=== PATIENT | male | born 1965 | race Caucasian/White ===

== ENCOUNTER 2025-08-22 13:18 | Outpatient (OUT) | payer MEDICARE, OTHER, SELFPAY ==
--- OUTSIDE RECORDS SUMMARY | 2025-08-15 15:15 | XMS_ITS | Encounter Summary ---
Author Organization [facility] Address [address] [place] [address] Care Team Providers Care Furniture Manager Name Role Phone Flash Martin DO Primary Care Provider [phone] Flash Martin DO Unavailable [phone] Reason for Visit * Other Medical (Routine) - Closed Specialty Diagnoses / Procedures Referred By Kelsea nguyen Referred To Contact Neurology Diagnoses Arthritis, lumbar spine Lumbar radiculopathy Numbness and tingling Procedures EMG AND NERVE CONDUCTION STUDY Flash Martin, DO [address] [address] [place] [address] Phone: tel: fax: Vince Dawn MD [address] [place] [address] Phone: tel: fax: Referral ID Status Reason Start Date Expiration Date Visits Re quested Visits Authorized [id number] Closed 08/06/2025 02/02/2026 1 1 Encounter Details Date Type Department Care Team (Latest Contact Info) Description 08/15/2025 3:15 PM EDT [facility] [address] [place] [phone] Vince Dawn MD [address] [place] [address] [id number] Numbness (Primary Dx); Pain in both lower extremities; Weakness of both lower extremities Social History Tobacco Use Types Packs/Day Years Used Date Smoking Tobacco: Never Smokeless Tobacco: Never Alcohol Use Standard Drinks/Week Comments Yes 12 (1 standard drink = 0.6 oz pure alcohol) caffeine: 1-2 cups per day coffee 4 cups daily B1300 Health Literacy Answer Date Recor ded How often do you need to hav e someone help you when you read instructions, pamphlets, or other written material from your doctor or pharmacy? Patient declines to respond 07/24/2024 Social Connection and Isolation Panel [NHANES] A nswer Date Recorded In a typical week, how many times do you talk on the phone with family, friends, or neighbors? Patient declined 07/24/2024 How often do you get togethe r with friends or relatives? Patient declined 07/24/2024 How often do you attend shinto or baptist serv ices? Patient declined 07/24/2024 Do you belong to any clubs o r organizations such as shinto groups, unions, fraternal or athletic groups, or school groups? Patient declined 07/24/2024 How often do you attend meet ings of the clubs or organizations you belong to? Patient declined 07/24/2024 Are you , , di vorced, , never , or living with a partner? Patient declined 07/24/2024 AUDIT-C Answer Date Recorded Q1: How often do you have a drink containing alc ohol? Patient declined 07/24/2024 Q2: How many drinks containi ng alcohol do you have on a typical day when you are drinking? Patient declined 07/24/2024 Q3: How often do you have si x or more drinks on one occasion? Patient declined 07/24/2024 Overall Financial Resource Strain (CARDIA) Answe r Date Recorded How hard is it for you to pa y for the very basics like food, housing, medical care, and heating? Patient declined 07/24/2024 PHQ-2 Answer Date Recorded Patient Health Questionnaire-2 Score 0 08/06/2025 [facility] [place] [facility] Occupat ional Health - Occupational Stress Questionnaire Answer Date Recorded Do you feel stress - tense, restless, nervous, or anxious, or unable to sleep at night because your mind is troubled all the time - these days? Patient declined 07/24/2024 Exercise Vital Sign Answer Date Recorde d On average, how many days pe r week do you engage in moderate to strenuous exercise (like a brisk walk)? 0 days 07/24/2024 On average, how many minutes do you engage in exercise at this level? 0 min 07/24/2024 Hunger Vital Sign Answer Date Recorded Within the past 12 months, y ou worried that your food would run out before you got the money to buy more. Patient declined Within the past 12 months, t he food you bought just didn't last and you didn't have money to get more. Patient declined 12/2023 PRAPARE - Transportation Answer Date Re corded In the past 12 months, has l ack of transportation kept you from medical appointments or from getting medications? Patient declined 07/24/2024 In the past 12 months, has l ack of transportation kept you from meetings, work, or from getting things needed for daily living? Patient declined 07/24/2024 Housing Stability Vital Sign Answer Jeffry e Recorded In the last 12 months, was t here a time when you were not able to pay the mortgage or rent on time? Patient declined 07/24/20 24 Number of Times Moved in the Last Year Not on fi le 07/24/2024 At any time in the past 12 m [facility], were you homeless or living in a [place] facility (including now)? Patient declined 07/24/2024 Sex and Gender Information Value Date Recorded Sex Assigned at Male 12/08/2023 9:56 AM EST Legal Sex Male 6:36 PM EDT Gender Identity Male 12/08/2023 9:56 AM EST Sexual Orientation Not on file documented as of this encounter Progress Notes * Vince Dawn MD - 08/15/2025 3:15 PM EDT [facility] Patient: Eric Dodge [address], [address] , Sex: 1965, Male [place], [place] [address] Height: 180 cm Ref Phys: [email or web address] fax Electroneuromyogram (ENMG) Test Date: 2025-08-15 Patient Complaints: Low back pain, groin, buttocks, Numbness RL I. Fusion 2019, revision 2020. Nerve Conduction Studies Anti Sensory Summary Table Site NR Peak (ms) Norm Peak (ms) P-T* Amp (??V) Norm P-T Amp Site1 Site2 Delta-0 (ms) Dist (cm) Hussain(m/s) Norm Hussain (m/s) Left Saphenous (Wainapel's) Anti Sensory (med mall) med leg NR <4.41 >5.0 med leg med mall 14.0 >38.2 Right Saphenous ([place]ainapel's) Anti Sensory (med mall) med leg NR <4.41 >5.0 med leg med mall 14.0 >38.2 Left Superf Peron (Mary's) Anti Sensory (Ant Lat Mall) Calf NR <4.61 >3.99 Calf Ant Lat Mall 14.0 >40.49 Right Superf Peron (Mary's) Anti Sensory (Ant Lat Mall) Calf NR <4.61 >3.99 Calf Ant Lat Mall 14.0 >40.49 Left Sural Anti Sensory (Lat Mall) Calf NR <3.91 >5.99 Calf Lat Mall 14.0 >36.9 Right Sural Anti Sensory (Lat Mall) Calf 4.0 <3.91 6.6 >5.99 Calf Lat Mall 3.1 14.0 45 >36.9 Motor Summary Table Site NR Onset (ms) Norm Onset (ms) O-P* Amp (mV) Norm O-P Amp Neg Dur (ms) Site1 Site2 Delta-0 (ms)Dist (cm) Hussain (m/s) Norm Hussain (m/s) Left Peroneal Motor (Ext Dig Brev) max stim Ankle 1.6 <6.31 3.8 >1.99 7.03 Ankle Ext Dig Brev 1.6 10.0 63 B Fib 1.3 6.3 >1.99 17.03 B Fib Ankle 0.3 27.0 900 >38.9 Right Peroneal Motor (Ext Dig Brev) max stim Ankle 6.3 <6.31 0.4 >1.99 9.38 Ankle Ext Dig Brev 6.3 10.0 16 B Fib 11.6 5.6 >1.99 5.47 B Fib Ankle 5.3 26.0 49 >38.9 Left Peroneal TA Motor (Tib Ant) Fib Head 3.9 2.4 6.72 Left Tibial/Medial Plantar Motor (Abd Moore Brev) max stim Ankle 6.6 <7.51 2.6 >3.99 3.75 Ankle Abd Moore Brev 6.6 10.0 15 Knee 15.8 2.4 >3.99 4.38 Knee Ankle 9.2 36.0 39 >37.9 Right Tibial/Medial Plantar Motor (Abd Moore Brev) max stim, dispsersed, multilobar Ankle 5.5 <7.51 2.0 >3.99 6.09 Ankle Abd Moore Brev 5.5 10.0 18 Knee 13.8 2.4 >3.99 6.25 Knee Ankle 8.3 37.0 45 >37.9 H Reflex Studies NR H-Lat (ms) Lat Norm (ms) L-R H-Lat (ms) Left Tibial H-Reflex (Gastroc) 33.32 31.91 EMG Side Muscle Nerve Root Ins Act Fib/ Pos Fasc Other Atrophy Amp Dur Poly Recr Pat Int Pat Comment Right Ext Dig Brev Dp Br Peron L5, S1 0 0 0 0 0 2- 2+ 0 N 1- Right Tibialis Ant Dp Br Peron L4-5 0 0 0 0 0 N 1+ 0 N 1- Right Peroneus Long Sup Br Peron L5-S1 0 0 0 0 0 N 1+ 0 N N Right Abd Hallucis MedPlantar S1-2 0 1+ 0 0 0 3- 2+ 0 2- 2- Right Gastroc Med Tibial S1-2 0 0 0 0 0 N N 0 N FFE Right Vastus Lat Femoral L2-4 0 0 0 0 0 N N 0 N N Right L5-S1 Parasp L5-S1 0 2.5+ 0 0 0 Right L3-L4 Parasp L3-L4 0 2.5+ 0 0 0 Right L1-L2 Parasp L1-L2 0 1+ 0 0 0 Left Ext Dig Brev Dp Br Peron L5, S1 0 0 0 0 0 N 1+ 0 W&W N Left Tibialis Ant Dp Br Peron L4-5 0 0 0 0 0 N 1+ 0 1- N Left Peroneus Long Sup Br Peron L5-S1 0 0 0 0 0 N N 0 N N Left Abd Hallucis MedPlantar S1-2 0 0 0 0 0 N 3+ 0 2- N Left Gastroc Med Tibial S1-2 0 0 0 0 0 N N 0 N N Left Vastus Lat Femoral L2-4 0 0 0 0 0 N N 0 N N Left L5-S1 Parasp L5-S1 0 0 0 0 0 Left L3-L4 Parasp L3-L4 0 2.5+ 0 0 0 Left L1-L2 Parasp L1-L2 0 1+ 0 0 0 Abbreviations: Atrop=atrophy; CRD=complex repetitive discharge; Discr=discrete; Doub=doublet; Fasc=fasciculation; FFE=full for effort; Fib=fibrillation; Myokym=myokymia; [place]=myotonic potential; N,0=normal; NR=no response; Polyph=polyphasia; Pos=positive [sharp] wave; RFU=rapidly firing units; Ser r=serrated potential (2<phases<5); W&W=waxing and waning pattern INTERPRETATION: This study reveals ENMG evidence of an drxzf-fs-iyutnbf, \axonal process affecting multiple lumbar nerve roots, worst at the R L3-S1 levels (moderate to severe), followed by L L3-4, and mildly at L1-L2 bilaterally. Given the overlap of radicular territories in the paraspinal musclature; the actual nerve roots involved may be one level higher or lower than suggested here. There is a separate, chronic, axonal, sensory > motor process affecting all lower extremity nerves tested. Needle examination demonstrates a osqsxa-bd-drmhvgjm gradient that is most suggestive of peripheral neuropathy. This is of moderate degree by electrical criteria. Potential aetiologies include diabetes mellitus, hypothyroidism, deficiencies of B12, B6, or folate, B6 excess, the collagen-vascular diseases, dysglobulinaemias, medications (including chemotherapeutics, diuretics, and others), as a paraneoplastic syndrome, and a considerable number of rarer conditions. There is no suggestion by this study of myopathy, mononeuropathy, nor of more proximal processes e.g. plexopathy or radiculopathy. The study was limited by body habitus and to some degree by the patient's pain level, especially due to muscle spasms. Vince Dawn M.D. Diplomate, [place] [employer]iat[employer] and Neurology (neurology, epilepsy, sleep medicine) Diplomate, [place] Board of Clinical Neurophysiology Diplomate, [place] Board of Preventive Medicine (clinical informatics) . documented in this encounter Plan of Treatment Upcoming Encounters Date Type Department Care Team (Late st Contact Info) Description 12/11/2025 3:30 PM EST Office Visit [facility] [place] [facility] [address] [place] [address] Justine Giraldo DO [address] [place] [address] documented as of this encounter Visit Diagnoses Diagnosis Numbness- Primary Disturbance of skin sensation Pain in both lower extremities Weakness of both lower extremities documented in this encounter Care Teams Furniture Manager Relationship Specialty Start Date End Date Flash Martin DO [address] [place] [address] PCP - General Family Medicine 11/30/23 Flash Martin DO [address] [place] [address] PCP - [facility] [place] 12/23/24 documented as of this encounter
--- OUTSIDE RECORDS SUMMARY | 2025-08-21 15:00 | XMS_ITS | Encounter Summary ---
Author Organization [facility] Address [address] [place] [address] Care Team Providers Care Vehicle Trimmer Name Role Phone Flash Martin DO Primary Care Provider [phone] Flash Martin DO Unavailable [phone] Reason for Visit * Reason Comments COPD 4 month follow up Sleep Apnea 4 month follow up Encounter Details Date Type Department Care Team (Late st Contact Info) Description 08/21/2025 3:00 PM EDT Office Visit [facility] [address] [place] [address] Justine Giraldo DO [address] [place] [address] Mild chronic obstructive pulmonary disease (HCC) (Primary Dx); Obstructive sleep apnea syndrome Social History Tobacco Use Types Packs/Day Years [...] declined 07/24/2024 How often do you attend sabianism or muslim serv ices? Patient declined 07/24/2024 Do you belong to any clubs o r organizations such as sabianism groups, unions, fraternal or athletic groups, or [...] Recorded Patient Health Questionnaire-2 Score 0 08/06/2025 [facility] - Occupational Stress Questionnaire Answer Date Recorded [...] any time in the past 12 m [facility], were you homeless or living in a long term (including now)? Patient declined 07/24/2024 Sex and Gender Information Value Date Recorded Sex Assigned at Male 12/08/2023 9:56 AM EST Legal Sex Male 6:36 PM EDT Gender Identity Male 12/08/2023 9:56 AM EST Sexual Orientation Not on file documented as of this encounter Last Filed Vital Signs Vital Sign Reading Time Taken Comments Blood Pressure 131/76 08/21/2025 3:14 PM EDT Pulse 84 08/21/2025 3:14 PM EDT Temperature - - Respiratory Rate - - Oxygen Saturation 97% 08/21/2025 3:14 PM EDT Inhaled Oxygen Concentration - - Weight 150 kg (330 lb) 08/21/2025 3:14 PM EDT Height 180.3 cm (5' 11 ) 08/21/2025 3:14 PM EDT Body Mass Index 46.03 08/21/2025 3:14 PM EDT documented in this encounter Progress Notes * Justine Giraldo, DO - 08/21/2025 3:00 PM EDT Images from the original note were not included. Eric Dodge Sr presents today for follow up on COPD and sleep apnea. He was last seen several months ago. He is accompanied by his at today's office visit. Since his last office visit he did hurt his back. He has been following with Neurology as well as his primary care physician in regardsto this. He is scheduled to have an MRI performed soon. His breathing he states has been fairly stable. He has noticed in the past that this time a year has been worse for him given the allergies. Hedoes feel that this year has been better so far. He denies any current complaints of increasing shortness of breath at rest or with exertion. He denies any chest pain, palpitations, fevers, chills, sweats, or recent unintentional weight changes. He has yet to receive his Dupixent. However upon further discussion it does sound as if he needs to call to set up delivery. They had talked to his in the past but need to speak with him. He denies any other complaints. Allergies: Allergies Allergen Reactions Amlodipine Swelling LE swelling Bee Venom Anaphylaxis and Swelling Penicillin G Anaphylaxis Penicillins Shortness of breath and Swelling Wasp Venom Anaphylaxis Chlorhexidine Rash Lisinopril GI intolerance Stomach cramp Penicillin G Sodium Hives Statins GI intolerance Other Reaction(s): abdominal cramping Medications: Current Outpatient Medications: carvedilol (Coreg) 12.5 MG tablet, Take 1 tablet (12.5 mg) by mouth in the morning and 1 tablet (12.5 mg) in the evening. Take with meals., Disp: 180 tablet, Rfl: 3 Cetirizine HCl (ZYRTEC PO), Take by mouth, Disp: , Rfl: colchicine 0.6 MG tablet, Take 1 tablet (0.6 mg) by mouth Daily, Disp: 30 tablet, Rfl: 2 Dupilumab (Dupixent) 100 MG/0.67ML solution prefilled syringe, Inject under the skin, Disp: , Rfl: febuxostat (Uloric) 80 MG tablet, , Disp: , Rfl: gabapentin (Neurontin) 300 MG capsule, Take 1 capsule (300 mg) by mouth in the morning and 1 capsule (300 mg) in the evening and 1 capsule (300 mg) before bedtime., Disp: 90 capsule, Rfl: 1 naproxen (Naprosyn) 500 MG tablet, , Disp: , Rfl: tadalafil (Cialis) 20 MG tablet, Take 1 tablet (20 mg) by mouth Daily as needed for erectile dysfunction, Disp: 10 tablet, Rfl: 2 tiZANidine (Zanaflex) 2 MG tablet, Take 1-2 tablets (2-4 mg) by mouth at bedtime, Disp: 60 tablet, Rfl: 1 albuterol HFA 90 mcg/act inhaler, Inhale 2 puffs every 4 (four) hours if needed for wheezing, Disp:18 g, Rfl: 11 Sujoswn-Txheucyzyef-Wwfytolheu (Breztri Aerosphere) 160-9-4.8 MCG/ACT aerosol, Inhale 2 puffs in the morning and 2 puffs before bedtime., Disp: 10.7 g, Rfl: 5 montelukast (Singulair) 10 MG tablet, Take 1 tablet (10 mg) by mouth at bedtime, Disp: 30 tablet, Rfl: 5 omeprazole (PriLOSEC) [address] capsule, Take 1 capsule (40 mg) by mouth in the morning. Take beforemeals. Do not crush or chew.., Disp: 30 capsule, Rfl: 5 Past Medical History: Past Medical History: Diagnosis Date Abdominal wall pain 12/12/2013 Allergic Arthritis Boxers fracture Broken foot right Carpal tunnel syndrome Cervical disc disorder 09/17/2015 Colon polyps Constipation 06/15/2024 COPD (chronic obstructive pulmonary disease) ([facility]) CTS (carpal tunnel syndrome) 11/09/2014 Cubital tunnel syndrome 06/15/2024 Emphysema of lung ([facility]) 2019 Encounter for colonoscopy due to history of adenomatous colonic polyps 06/15/2024 Hyperlipidemia Hypertension Hyperuricemia 09/18/2024 Lesion of ulnar nerve 05/18/2023 Lesion of ulnar nerve, right upper limb 05/18/2023 Lumbar foraminal stenosis 06/15/2024 Lumbosacral plexus lesion 11/22/2022 Mixed hyperlipidemia 05/18/2023 Pneumonia Primary osteoarthritis of right ankle 05/18/2023 Shingles Sleep apnea Spinal stenosis Social History: Social History Tobacco Use Smoking status: Never Smokeless tobacco: Never Substance Use Topics Alcohol use: Yes Alcohol/week: 12.0 standard drinks of alcohol Types: 12 Standard drinks or equivalent per week Comment: caffeine: 1-2 cups per day coffee 4 cups daily Vitals: BP 131/76 (BP Location: Left arm, Patient Position: Sitting) Pulse 84 Ht 5' 11 Wt 330 lb SpO2 97% BMI 46.03 kg/m?? Exam: Heart: regular rate Lungs: clear to auscultation bilaterally, no wheezes/rales/rhonchi, no resp distress Extremities: no edema noted, no visible rashes Neuro: alert, oriented x3 Imaging Reviewed: None Assessment/Plan: Diagnoses and all orders for this visit: Mild chronic obstructive pulmonary disease (HCC) - Uszdnmb-Ibtzppqqctc-Mwxibudbol (Breztri Aerosphere) 160-9-4.8 MCG/ACT aerosol; Inhale 2 puffs in the morning and 2 puffs before bedtime. - montelukast (Singulair) 10 MG tablet; Take 1 tablet (10 mg) by mouth at bedtime - albuterol HFA 90 mcg/act inhaler; Inhale 2 puffs every 4 (four) hours if needed for wheezing Obstructive sleep apnea syndrome COPD -- he did request refills on his Breztri, Singulair, and albuterol. These were sent to the pharmacy for him at today's office visit. We discussed starting the Dupixent. He was again given samples at today's office visit. He will in the meantime call the company to ensure that this gets delivered so that he can begin getting this at home. He will follow here in 4 months time unless needed before then. JAN -- he remains noncompliant with use of his CPAP machine. We discussed the importance using his CPAP. Follow up in about 4 months (around 12/21/2025) for COPD. Justine Giraldo DO documented in this encounter Plan of Treatment Upcoming Encounters Date Type Department Care Team (Late st Contact Info) Description 12/11/2025 3:30 PM EST Office Visit [facility] [place] [facility] [address] [place] [address] Justine Giraldo DO [address] [place] [address] documented as of this encounter Visit Diagnoses Diagnosis Mild chronic obstructive pulmonary disease (HCC)- Primary Chronic airway obstruction, not elsewhere classified Obstructive sleep apnea syndrome Obstructive sleep apnea (adult) (pediatric) documented in this encounter Care Teams Vehicle Trimmer Relationship Specialty Start Date End Date Flash Martin DO [address] [place] [address] PCP - General Family Medicine 11/30/23 Flash Martin DO [address] [place] [address] [facility] 12/23/24 documented as of this encounter
--- OUTSIDE RECORDS SUMMARY | 2025-08-22 13:24 | XMS_ITS | Encounter Summary ---
Author Organization [facility] Address [address] [address] Care Team Providers Care Hydraulic Barker Operator Name Role Phone Flash Martin DO Primary Care Provider [phone] Flash Martin DO Unavailable [phone] Flash Martin DO Unavailable [phone] Encounter Details Date Type Department Care Team (Late Contact Info) Description 07/06/2024 [facility] [address] [facility] [address] [place] [id number] Flash Martin, DO [address] [facility] [address] [place] [address] Social History Tobacco Use Types Packs/Day Years Used Date Smoking Tobacco: Never Smokeless Tobacco: Never Alcohol Use Standard Drinks/Week Comments Yes 12 (1 standard drink = 0.6 oz pure alcohol) caffeine: 1-2 cups per day coffee 4 cups daily PHQ-2 Answer Date Recorded Patient Health Questionnaire-2 Score 0 12/15/2023 Sex and Gender Information Value Date Recorded Sex Assigned at Male 12/08/2023 9:56 AM EST Legal Sex Male 6:36 PM EDT Gender Identity Male 12/08/2023 9:56 AM EST Sexual Orientation Not on file documented as of this encounter Plan of Treatment Upcoming Encounters Date Type Department Care Team (Late st Contact Info) Description 12/11/2025 3:30 PM EST Office [facility] [address] [place] [address] Justine Giraldo, DO [address] [place] [address] documented as of this encounter Visit Diagnoses Not on filedocumented in this encounter Care Teams Hydraulic Barker Operator Relationship Specialty Start Date End Date Flash Martin, DO [address] [place] [address] PCP - General Family Medicine 11/30/23 Flash Martin DO [address] [place] [address] PCP - [facility] 12/29/24 02/22/25 Flash Martin DO [address] [place] [address] PCP - [facility] 12/23/24 documented as of this encounter
--- OUTSIDE RECORDS SUMMARY | 2025-08-22 13:24 | XMS_ITS | Encounter Summary ---
Author Organization [facility] Address [address] [facility] [place] [address] Care Team Providers Care Receivable Manager Name Role Phone Flash Martin DO Primary Care Provider [phone] Flash Martin DO Unavailable [phone] Flash Martin DO Unavailable [phone] Encounter Details Date Type Department Care Team (Late st Contact Info) Description 05/18/2024 Abstract [facility] [address] [place] [address] Justine Giraldo DO [address] [place] [place] [address] Social History Tobacco Use Types Packs/Day Years [...] Description 12/11/2025 3:30 PM EST Office Visit [facility] [address] [place] [address] Justine Giraldo, DO [address] [place] [address] documented as of this encounter Visit Diagnoses Not on filedocumented in this encounter Care Teams Receivable Manager Relationship Specialty Start Date End Date Flash Martin DO [address] [place] [address] PCP - General Family Medicine 11/30/23 Flash Martin DO [address] [place] [address] PCP - [facility] 12/29/24 02/22/25 Flash Martin DO [address] [place] [address] [address] - [facility] 12/23/24 documented as of this encounter
--- OUTSIDE RECORDS SUMMARY | 2025-08-22 13:24 | XMS_ITS | Encounter Summary ---
Author Organization [facility] Address [address] [facility] [place] [address] Care Team Providers Care Middle School Tutor Name Role Phone Flash Martin DO Primary Care Provider + [phone] Flash Martin DO Unavailable [phone] Flash Martin DO Unavailable [phone] Encounter Details Date Type Department Care Team (Late st Contact Info) Description 02/19/[address] [facility] [address] [place] [address] Yee Lundberg MA Gout, unspecified cause, unspecified chronicity, unspecified site Social History Tobacco Use Types Packs/Day Years [...] declined 07/24/2024 How often do you attend scientologist or islam serv ices? Patient declined 07/24/2024 Do you belong to any clubs o r organizations such as scientologist groups, unions, fraternal or athletic groups, or [...] Answer Date Recorded Patient Health Questionnaire-2 Score 1 01/11/2025 [facility] - Occupational Stress Questionnaire Answer Date Recorded [...] any time in the past 12 m [facility], were you homeless or living in a group home (including now)? Patient declined 07/24/2024 Sex and [...] [facility] [address] [place] [address] Justine Giraldo DO [address] [place] [address] documented as of this encounter Procedures Procedure Name Priority Date/Time Associated Diagnosis Comments AMB REFERRAL TO RHEUMATOLOGY Routine 02/19/2025 3:33 PM EDT Gout, unspecified cause, unspecified chronicity, unspecified site documented in this encounter Results * Ambulatory referral to Rheumatology (02/19/2025 3:33 PM EDT) Flash Martin DO OUTPATIENT REFERRAL ORDERA BLES Final Result documented in this encounter Visit Diagnoses Diagnosis Gout, unspecified cause, unspecified chronicity, unspecified site documented in this encounter Care Teams Middle School Tutor Relationship Specialty Start Date End Date Flash Martin DO [address] [place] [address] PCP - General Family Medicine 11/30/23 Flash Martin DO [address] [place] [address] PCP - O Reach 12/29/24 02/22/25 Flash Martin DO [address] [place] [id number] [facility] 12/23/24 documented as of this encounter
--- OUTSIDE RECORDS SUMMARY | 2025-08-22 13:24 | XMS_ITS | Clinical Summary ---
Author Organization [facility] Address [address] [place] [address] Phone Care Team Providers Care Evp And Chief Operating Officer Name Role Phone Unavailable Primary Care Provider Unavailabl e Social History Tobacco Use Types Packs/Day Years Used Date Smoking Tobacco: Never Assessed Sex and Gender Information Value Date Recorded Sex Assigned at Not on file Legal Sex Male 12:00 PM EST Gender Identity Not on file Sexual Orientation Not on file Plan of Treatment Not on file
--- OUTSIDE RECORDS SUMMARY | 2025-08-22 13:25 | XMS_ITS | Clinical Summary ---
Author Organization [facility] Address [address] [place] [address] Care Team Providers Care Last Cleaner Name Role Phone Flash Martin DO Primary Care Provider [phone] Flash Martin DO Unavailable [phone] Allergies Active Allergy Reactions Criticality Noted Date Comments Amlodipine Swelling High 02/15/2015 LE swelling Bee Venom Anaphylaxis,Swelling High 03/29/2021 Chlorhexidine Rash Low 06/15/2024 Lisinopril GI intolerance Low 02/15/2015 Stomach cramp Penicillin G Anaphylaxis High 05/18/2023 Penicillin G Sodium Hives Low 10/07/2023 Penicillins Shortness of breath,Swelling High 12/12/2013 Statins GI intolerance Low 05/18/2023 Other Reaction(s): abdominal cramping Wasp Venom Anaphylaxis High 05/18/2023 Medications omeprazole (PriLOSEC) [address] capsuleIndication s:Gastroesophagea l reflux disease, unspecified whether esophagitis present Take 1 capsule (40 mg) by mouth in the morning. Take before meals. Do not crush or chew.. 30 capsule 5 06/03/20 23 Active colchicine 0.6 MG tabletIndications :Gout, unspecified cause, unspecified chronicity, unspecified site Take 1 tablet (0.6 mg) by mouth Daily 30 tablet 2 07/05/20 24 Active tadalafil (Cialis) 20 MG tabletIndications :Erectile dysfunction, unspecified erectile dysfunction type Take 1 tablet (20 mg) by mouth Daily as needed for erectile dysfunction 10 tablet 2 12/07/19 25 Active febuxostat (Uloric) 80 MG tablet 12/04/19 25 Active naproxen (Naprosyn) 500 MG tablet 12/04/19 25 Active Dupilumab (Dupixent) 100 MG/0.67ML solution prefilled syringe Inject under the skin Active carvedilol (Coreg) 12.5 MG tabletIndications :Primary hypertension Take 1 tablet (12.5 mg) by mouth in the morning and 1 tablet (12.5 mg) in the evening. Take with meals. 180 tablet 3 01/11/20 25 026 Active Cetirizine HCl (ZYRTEC PO) Take by mouth Acti ve gabapentin (Neurontin) 300 MG capsuleIndication s:Arthritis, lumbar spine,Lumbar radiculopathy Take 1 capsule (300 mg) by mouth in the morning and 1 capsule (300 mg) in the evening and 1 capsule (300 mg) before bedtime. 90 capsule 1 08/06/20 25 025 Active tiZANidine (Zanaflex) 2 MG tabletIndications :Arthritis, lumbar spine,Lumbar radiculopathy Take 1-2 tablets (2-4 mg) by mouth at bedtime 60 tablet 1 08/06/20 25 025 Active Budeson-Glycopyrr ol-Formoterol (Breztri Aerosphere) 160-9-4.8 MCG/ACT aerosolIndication s:Mild chronic obstructive pulmonary disease (HCC) Inhale 2 puffs in the morning and 2 puffs before bedtime. 10.7 g 5 08/21/20 25 Active montelukast (Singulair) 10 MG tabletIndications :Mild chronic obstructive pulmonary disease (HCC) Take 1 tablet (10 mg) by mouth at bedtime 30 tablet 5 08/21/20 25 Active albuterol HFA 90 mcg/act inhalerIndication s:Mild chronic obstructive pulmonary disease (HCC) Inhale 2 puffs every 4 (four) hours if needed for wheezing 18 g 11 08/21/20 25 Active ALPRAZolam (Xanax) 1 MG tabletIndications :Claustrophobia 1 pill 1 hr prior to mri and may repeat at time of mri 2 tablet 08/22/20 25 Active Budeson-Glycopyrr ol-Formoterol (Breztri Aerosphere) 160-9-4.8 MCG/ACT aerosolIndication s:Mild chronic obstructive pulmonary disease (HCC) INHALE 2 PUFFS BY MOUTH EVERY 12 HOURS 10.7 g 5 08/10/20 24 025 Discontinu ed(Reorder ) montelukast (Singulair) 10 MG tabletIndications :Mild chronic obstructive pulmonary disease (HCC) TAKE 1 TABLET BY MOUTH AT BEDTIME 30 tablet 5 01/19/20 25 025 Discontinu ed(Reorder ) albuterol HFA 90 mcg/act inhalerIndication s:Mild chronic obstructive pulmonary disease (HCC) Inhale 2 puffs every 4 (four) hours if needed for wheezing 18 g 11 04/06/20 25 025 Discontinu ed(Reorder ) predniSONE (Deltasone) 20 MG tabletIndications :Arthritis, lumbar spine,Lumbar radiculopathy Take 2 tablets (40 mg) by mouth Daily for 3 days, THEN 1 tablet (20 mg) Daily for 3 days, THEN 0.5 tablets (10 mg) Daily for 4 days. 11 tablet 08/06/20 25 025 Active Problems Problem Noted Date Diagnosed Date Impaired fasting glucose 09/02/2023 Arthritis, lumbar spine 05/18/2023 Benign prostatic hyperplasia with lower urinary tract symptoms 05/18/2023 Erectile dysfunction 05/18/2023 Gastroesophageal reflux disease 05/18/2023 Gout 05/18/2023 Mild chronic obstructive pulmonary disease 05/18 Obesity, Class III, BMI 40-49.9 (morbid obesity) 05/18/2023 Obstructive sleep apnea syndrome 05/18/2023 Hypertension 02/15/2015 Hyperlipidemia 02/15/2015 Resolved Problems Problem Noted Date Diagnosed Date Resolved Date Hyperuricemia 09/18/2024 09/18/2024 Constipation 06/15/2024 06/15/2024 Cubital tunnel syndrome 06/15/202405/23 Encounter for colonoscopy du e to history of adenomatous colonic polyps 06/15/2024 06/15/2024 Lumbar foraminal stenosis 06/15/2024 Arthritis 05/18/2023 05/18/2023 Dyspnea 05/18/2023 05/18/2023 Lesion of ulnar nerve, right upper limb 05/18/2023 05/18/2023 Lesion of ulnar nerve 05/18/20232022 Loose body in joint 05/18/2023 05/18/20 23 Mixed hyperlipidemia 05/18/2023 023 Neurogenic claudication 05/18/202304/23 Obesity 05/18/2023 05/18/2023 Poor balance 05/18/2023 05/18/2023 Primary osteoarthritis of right ankle 05/18/2023 05/18/2023 Right foot pain 05/18/2023 05/18/2023 Shingles 05/18/2023 05/18/2023 Lumbosacral plexus lesion 11/22/2022 Lymphadenopathy 09/26/2015 05/18/2023 Cervical disc disorder 09/17/201505/18 Midline low back pain with r ight-sided sciatica 09/17/2015 05/18/2023 Sleep apnea 02/15/2015 05/18/2023 CTS (carpal tunnel syndrome) 11/09/2014 05/18/2023 Abdominal wall pain 12/12/2013 05/18/20 23 Encounters Date Type Department Care Team Description 08/21/2025 3:00 PM EDT Office Visit [facility] [address] [place] [address] Justine Giraldo DO Mild chronic obstructive pulmonary disease (HCC) (Primary Dx); Obstructive sleep apnea syndrome 08/21/2025 Bamboo flowsheet [facility] [place] [facility] [address] [place] [address] Justine Giraldo DO 08/21/2025 Travel 08/20/2025 Telephone [facility] [address] [place] [address] [place] [phone] Flash Martin, 08/15/2025 3:15 PM EDT Procedure Visit [facility] [address] [place] [phone] Vince Dawn MD Numbness (Primary Dx); Pain in both lower extremities; Weakness of both lower extremities 08/15/2025 Telephone [facility] [address] [place] [phone] Flash Martin, 08/15/2025 Travel 08/08/2025 Telephone [facility] [address] [place] [address] Venita Dawn 08/07/2025 Results Follow-Up [facility] [address] [place] [place] [phone] Flash Martin, XR lumbar spine complete 4+ views, XR hips bilateral 3 or 4 views 08/06/2025 3:30 PM EDT Ancillary Procedure [facility] [address] [place] [address] 08/06/2025 2:30 PM EDT Office Visit [facility] [address] [place] [phone] Flash Martin DO Arthritis, lumbar spine (Primary Dx); Lumbar radiculopathy; Pain of right hip; Lumbar pain; Left hip pain; Right hip pain; Numbness and tingling 08/06/2025 Bamboo flowsheet [facility] [address] [place] [phone] Flash Martin, 08/06/2025 Travel 07/25/20[facility] [address] [place] [address] [place] [address] Luciana Eugene MA 06/26/2025 Abstract [facility] [address] [place] [address] [place] [address] Flash Martin DO from Last 3 Months Immunizations Immunization Administration Dates Next Due Tetanus toxoid, adsorbed 09/02/2005 Family History Medical History Relation Name Comments Emphysema Mother Kadi Cazares Heart disease Mother Kadi Cazares Hyperlipidemia Mother Kadi Cazares Hypertension Mother Kadi Cazares Hypotension Mother Kadi Cazares Relation Name Status Comments Daughter Alive Father Alive Mother Kadi Cazares Alive Sister Alive Son Alive Social History Tobacco Use Types Packs/Day Years Used Date Smoking Tobacco: Never Smokeless Tobacco: Never Tobacco Cessation:Counseling Given: Not Answered Alcohol Use Standard Drinks/Week Comments Yes 12 [...] declined 07/24/2024 How often do you attend buddhist or yazdanism serv ices? Patient declined 07/24/2024 Do you belong to any clubs o r organizations such as buddhist groups, unions, fraternal or athletic groups, or [...] Recorded Patient Health Questionnaire-2 Score 0 08/06/2025 [facility] Occupat ional Health - Occupational Stress [...] any time in the past 12 m [facility], were you homeless or living in a fci (including now)? Patient declined 07/24/2024 Sex and Gender Information Value Date Recorded Sex Assigned at Male 12/08/2023 9:56 AM EST Legal Sex Male 6:36 PM EDT Gender Identity Male 12/08/2023 9:56 AM EST Sexual Orientation Not on file Last Filed Vital Signs Vital Sign Reading Time Taken Comments Blood Pressure 131/76 08/21/2025 3:14 PM EDT Pulse 84 08/21/2025 3:14 PM EDT Temperature 36.6 C (97.8 F) 08/06/2025 2:30 PM EDT Respiratory Rate - - Oxygen Saturation 97% 08/21/2025 3:14 PM EDT Inhaled Oxygen Concentration - - Weight 150 kg (330 lb) 08/21/2025 3:14 PM EDT Height 180.3 cm (5' 11 ) 08/21/2025 3:14 PM EDT Body Mass Index 46.03 08/21/2025 3:14 PM EDT Plan of Treatment Upcoming Encounters Date Type Department Care Team (Late st Contact Info) Description 12/11/2025 3:30 PM EST Office Visit [facility] [address] [place] [address] Justine Giraldo, DO [address] [place] [address] Health Maintenance Due Date Last Done Comments CT Colonography 1966 FIT-DNA 1966 FIT 1966 FOBT 1966 Sigmoidoscopy 1966 Influenza Vaccine (#1) 2025 Medicare Annual Wellness (AWV) 01/11/2026 01/11/2025 , 09/02/2023, 06/08/2022 Colonoscopy 03/14/2029 03/14/2019, 04/22/2013 Colorectal Cancer Screening 03/14/2029 Procedures Procedure Name Priority Date/Time Associated Diagnosis Comments XR HIPS BILATERAL 3 OR 4 VW WITH OR WITHOUT PELVIS Routine 08/06/2025 3:41 PM EDT Right hip pain XR LUMBAR SPINE COMPLETE 4+ VIEWS Routine 08/06/2025 3:41 PM EDT Lumbar pain LIPID PANEL Routine 08/02/2025 12:59 PM EDT Primary hypertension Mixed hyperlipidemia Routine general medical examination at a health care facility COMPREHENSIVE METABOLIC PANEL Routine 08/02/2025 12:59 PM EDT Primary hypertension Mixed hyperlipidemia Routine general medical examination at a health care facility CBC (INCLUDES DIFF/PLT) Routine 08/02/2025 12:59 PM EDT Primary hypertension Mixed hyperlipidemia Routine general medical examination at a health care facility PSA, TOTAL Routine 08/02/2025 12:59 PM EDT Primary hypertension Mixed hyperlipidemia Routine general medical examination at a [facility] facility Screening for prostate cancer COLONOSCOPY Routine 03/14/2019 12:00 PM EDT from Last 3 Months or Most Recently Relevant to Health Maintenance Results * XR hips bilateral 3 or 4 views (08/06/2025 3:41 PM EDT) Anatomical Region Laterality Modality Lower Extremities, Hip Bilateral Radiograp hic Imaging 08/07/2025 2:29 PM EDT Impressions 08/07/2025 2:29 PM EDT No acute osseous findings. Degenerative changes. ELECTRONICALLY SIGNED BY: Giovanni Gerber MD Narrative 08/07/2025 2:29 PM EDT EXAMINATION/TECHNIQUE: XR HIPS BILATERAL 3 OR 4 VW WITH OR WITHOUT PELVIS HISTORY: Right hip pain. COMPARISON: None RESULT: No acute fracture involving the bony pelvis. No acute hip fracture or dislocation. Postsurgical degenerative changes of the partially imaged lumbar spine. SI joints and pubic symphysis intact. Mild to moderate degenerative changes both hips with CAM morphology of the femoral heads. Soft tissues unremarkable. Procedure Note Giovanni Gerber MD - 08/07/2025 EXAMINATION/TECHNIQUE: XR HIPS BILATERAL 3 OR 4 VW WITH OR WITHOUTPELVIS HISTORY: Right hip pain. COMPARISON: None RESULT: No acute fracture involving the bony pelvis. No acute hip fracture ordislocation. Postsurgical degenerative changes of the partially imagedlumbar spine. SI joints and pubic symphysis intact. Mild to moderatedegenerative changes both hips with CAM morphology of the femoral heads.Soft tissues unremarkable. IMPRESSION: No acute osseous findings. Degenerative changes. ELECTRONICALLY SIGNED BY: Giovanni Gerber MD us Flash Martin DO IMG XR PROCEDURES Final Re sult * XR lumbar spine complete 4+ views (08/06/2025 3:41 PM EDT) Anatomical Region Laterality Modality Spine, L-spine Radiographic Mary Grace ging 08/07/2025 1:44 PM EDT Impressions 08/07/2025 1:47 PM EDT No acute osseous findings. Postsurgical and degenerative changes. ELECTRONICALLY SIGNED BY: Giovanni Gerber MD Narrative 08/07/2025 1:47 PM EDT EXAMINATION/TECHNIQUE: XR LUMBAR SPINE COMPLETE 4+ VIEWS HISTORY: Back pain. COMPARISON: None RESULT: Counting Reference: L5-S1 is the last well-formed disc space. Straightening of the lumbar lordosis. Alignment otherwise near-anatomic. No evidence for acute fracture. Chronic appearing wedge deformity of L3. Postsurgical changes from prior posterior laminectomy with bilateral julianna and pedicle screw fixation from L3-L5 and interbody material in the L3-L4, L4-L5, and L5-S1 disc spaces. Hardware appears grossly intact. No distinct periprosthetic lucency. Multilevel disc height loss with endplate osteophytes. Visualized sacrum grossly intact. Degenerative changes SI joints. Soft tissues unremarkable. Procedure Note Giovanni Gerber MD - 08/07/2025 EXAMINATION/TECHNIQUE: XR LUMBAR SPINE COMPLETE 4+ VIEWS HISTORY: Back pain. COMPARISON: None RESULT: Counting Reference: L5-S1 is the last well-formed disc space. Straightening of the lumbar lordosis. Alignment otherwise near-anatomic.No evidence for acute fracture. Chronic appearing wedge deformity of L3.Postsurgical changes from prior posterior laminectomy with bilateral rodand pedicle screw fixation from L3-L5 and interbody material in the L3-L4,L4-L5, and L5-S1 disc spaces. Hardware appears grossly intact. Nodistinct periprosthetic lucency. Multilevel disc height loss with endplateosteophytes. Visualized sacrum grossly intact. Degenerative changes SIjoints. Soft tissues unremarkable. IMPRESSION: No acute osseous findings. Postsurgical and degenerative changes. ELECTRONICALLY SIGNED BY: Giovanni Gerber MD us Flash Martin DO IMG XR PROCEDURES Final Re sult * CBC and differential (08/02/2025 12:59 PM EDT) WBC 7.4 3.4 - 10.8 x10E3/uL [facility] RBC 4.65 4.14 - 5.80 x10E6/uL [facility] Hgb 13.9 13.0 - 17.7 g/dL [facility] Hct 41.3 37.5 - 51.0 % [facility] MCV 89 79 - 97 fL [facility] MCH 29.9 26.6 - 33.0 pg [facility] MCHC 33.7 31.5 - 35.7 g/dL [facility] RDW 12.9 11.6 - 15.4 % [facility] Platelets 220 150 - 450 x10E3/uL [facility] Neutrophils 55 Not Estab. % [facility] Lymphs 35 Not Estab. % [facility] Monocytes 7 Not Estab. % [facility] Eos 2 Not Estab. % [facility] Basos 0 Not Estab. % [facility] Neutrophils Abs 4.0 1.4 - 7.0 x10E3/uL [facility] Lymphs Abs 2.6 0.7 - 3.1 x10E3/uL [facility] MonocytesAbs 0.5 0.1 - 0.9 x10E3/uL [facility] Eos Abs 0.2 0.0 - 0.4 x10E3/uL [facility] Baso Abs 0.0 0.0 - 0.2 x10E3/uL [facility] Immature Granulocytes 1 Not Estab. % [facility] Immature Grans Abs 0.0 0.0 - 0.1 x10E3/uL [facility] Blood Venous blood specimen / Unknown 08/02/2025 12:59 PM EDT 08/02/2025 Narrative [facility] - 08/03/2025 6:07 AM EDT Performed at: 01 - [address], [address], [place], [place] [id number] Base Manager: Molly Trejo MD, Phone: [phone] us Flash Martin DO LAB BLOOD ORDERABLES Final Result [facility] * PSA (08/02/2025 12:59 PM EDT) [facility] PSA 1.0 0.0 - 4.0 ng/mL [facility] Comment: Perla ECLIA methodology. According to the [place] [employer], Serum PSA should decrease and remain at undetectable levels after radical prostatectomy. The AUA defines biochemical recurrence as an initial PSA value 0.2 ng/mL or greater followed by a subsequent confirmatory PSA value 0.2 ng/mL or greater. Values obtained with different assay methods or kits cannot be used interchangeably. Results cannot be interpreted as absolute evidence of the presence or absence of malignant disease. Blood Venous blood specimen / Unknown 08/02/2025 12:59 PM EDT 08/02/2025 Narrative [facility] - 08/03/2025 6:07 AM EDT Performed at: 01 - [place] [address], [address], [place], [place] [id number] Base Manager: Molly Trejo MD, Phone: [phone] [facility] Javan Martin LAB BLOOD ORDERABLES Final Result Performing Organization Address [facility]/ZIP Co de Phone Number [facility] * (ABNORMAL) Lipid panel (08/02/2025 12:59 PM EDT) Cholesterol, Total 217(H) 100 - 199 mg/dL [facility] Triglycerides 232(H) 0 - 149 mg/dL [facility] HDL Cholesterol 45 >39 mg/dL [facility] VLDL Cholesterol Cirilo 41(H) 5 - 40 mg/dL [facility] LDL Chol Calc (NIH) 131(H) 0 - 99 mg/dL [facility] Blood Venous blood specimen / Unknown 08/02/2025 12:59 PM EDT 08/02/2025 Narrative [facility] - 08/03/2025 6:07 AM EDT Performed at: - [address] [id number] Base Manager: Michael Griffith PhD, Phone: [phone] Flashthad Martin LAB BLOOD ORDERABLES Final Result Performing Organization Address City/[facility]/ZIP Co de Phone Number [facility] * (ABNORMAL) Comprehensive metabolic panel (08/02/2025 12:59 PM EDT) Glucose 107(H) 70 - 99 mg/dL [facility] BUN 8 6 - 24 mg/dL [facility] Creat 0.92 0.76 - 1.27 mg/dL [facility] EGFR 96 >59 mL/min/1.7 3 [facility] BUN/Creat Ratio 9 9 - 20 [facility] Sodium 141 134 - 144 mmol/L [facility] Potassium 4.3 3.5 - 5.2 mmol/L [facility] Chloride 105 96 - 106 mmol/L [facility] Carbon Dioxide 22 20 - 29 mmol/L [facility] Calcium 9.3 8.7 - 10.2 mg/dL [facility] Protein Total 6.5 6.0 - 8.5 g/dL [facility] Albumin 4.4 3.8 - 4.9 g/dL [facility] Globulin Total 2.1 1.5 - 4.5 g/dL [facility] Bili Total 0.7 0.0 - 1.2 mg/dL [facility] Alk Phosphatase 91 44 - 121 IU/L [facility] Comment: Effective August 06, 2025 Alkaline Phosphatase reference interval will be changing to: Age Male Female 0 - 5 days 47 - 127 47 - 127 6 - 10 days 29 - 242 29 - 242 11 - 20 days 109 - 357 109 - 357 21 - 30 days 94 - 494 94 - 494 1 - 2 months 149 - 539 149 - 539 3 - 6 months 131 - 452 131 - 452 7 - 11 months 117 - 401 117 - 401 12 months - 6 years 158 - 369 158 - 369 7 - 12 years 150 - 409 150 - 409 13 years 156 - 435 78 - 227 14 years 114 - 375 64 - 161 15 years 88 - 279 56 - 134 16 years 74 - 207 51 - 121 17 years 63 - 161 47 - 113 18 - 20 years 51 - 125 42 - 106 21 - 50 years 47 - 123 41 - 116 51 - 80 years 49 - 135 51 - 125 >80 years 48 - 129 48 - 129 AST 28 15 - 59 IU/L [facility] ALT 31 0 - 50 IU/L [facility] Blood Venous blood specimen / Unknown 08/02/2025 12:59 PM EDT 08/02/2025 Narrative [facility] - 08/03/2025 6:07 AM EDT Performed at: 01 - [facility] [address] , [address], [place], [place] [id number] Base Manager: Molly Trejo MD, Phone: [phone] Flash Martin DO LAB BLOOD ORDERABLES Final Result [facility] * Colonoscopy (03/14/2019 12:00 PM EDT) Anatomical Region Laterality Modality Endoscopy 03/14/2019 12:0 0 PM EDT Narrative 03/14/2019 12:00 PM EDT PERFORMED AT [facility] LOCATION:[id number] [facility] Procedure Note CONVERSION, GENERIC - 04/07/2023 PERFORMED AT [facility] LOCATION:[id number] [facility] Flash Martin DO ENDOSCOPY PROCEDURE ORDERA BLES Final Result from Last 3 Months or Most Recently Relevant to Health Maintenance Insurance [place]ICAID [place] [employer] [place] Care Teams Last Cleaner Relationship Specialty Start Date End Date Flash Martin DO [address] [facility] [address] [place] [address] PCP - General Family Medicine 11/30/23 Flash Martin DO [address] [facility] [address] [place] [address] PCP - [facility] 12/23/24
--- OUTSIDE RECORDS SUMMARY | 2025-08-22 13:25 | XMS_ITS | Encounter Summary ---
Author Organization [facility] Address [address] [facility] [place] [address] Care Team Providers Care Thread Puller Name Role Phone Flash Martin DO Primary Care Provider +- [phone] PetFlash galvan DO Primary Care Provider + [phone] Flash Martin DO Unavailable [phone] Petznmoreno, Flash Edouard DO Unavailable [phone] Encounter Details Date Type Department Care Team (Late st Contact Info) Description 06/15/2023 Abstract [facility] [address] [facility] [address] [place] [phone] Lise Parson LPN [address] [facility] [address] [place] [address] Social History Tobacco Use Types Packs/Day Years Used Date Smoking Tobacco: Never Smokeless Tobacco: Never Alcohol Use Standard Drinks/Week Comments Yes 12 (1 standard drink = 0.6 oz pure alcohol) caffeine: 1-2 cups per day coffee 4 cups daily Sex and Gender Information Value Date Recorded Sex Assigned at Male 12/08/2023 9:56 AM EST Legal Sex Male 6:36 PM EDT Gender Identity Male 12/08/2023 9:56 AM EST Sexual Orientation Not on file documented as of this encounter Plan of Treatment Upcoming Encounters Date Type Department Care Team (Late st Contact Info) Description 12/11/2025 3:30 PM EST Office Visit [facility] [address] [place] [address] Justine Giraldo, DO [address] [place] [address] documented as of this encounter Visit Diagnoses Not on filedocumented in this encounter Care Teams Thread Puller Relationship Specialty Start Date End Date Flash Martin DO PCP - General Family Medicine 05/18/23 11/29/23 Flash Martin, DO [address] [place] [address] PCP - General Family Medicine 11/30/23 Flash Martin DO [address] [place] [address] PCP - [facility] 12/29/24 02/22/25 Flash Martin, DO [address] [place] [address] PCP - [facility] 12/23/24 documented as of this encounter
--- OUTSIDE RECORDS SUMMARY | 2025-08-22 13:25 | XMS_ITS | Encounter Summary ---
Author Organization [facility] Address [address] [place] [address] Care Team Providers Care Fisherman Helper Name Role Phone Flash Martin DO Primary Care Provider +[phone]- [phone] Flash Martin DO Unavailable [phone] Encounter Details Date Type Department Care Team (Latest Contact Info) Description 08/15/2025 Travel Social History Tobacco Use Types Packs/Day Years [...] declined 07/24/2024 How often do you attend anglican or worship serv ices? Patient declined 07/24/2024 Do you belong to any clubs o r organizations such as anglican groups, unions, fraternal or athletic groups, or [...] Recorded Patient Health Questionnaire-2 Score 0 08/06/2025 [facility] - Occupational Stress Questionnaire Answer Date [...] any time in the past 12 m [facility], were you homeless or living in a longterm (including now)? Patient declined 07/24/2024 Sex and [...] [facility] [place] [facility] [address] [place] [place] [address] Justine Giraldo DO [address] [place] [address] documented as of this encounter Visit Diagnoses Not on filedocumented in this encounter Care Teams Fisherman Helper Relationship Specialty Start Date End Date Flash Martin DO [address] [place] [address] PCP - General Family Medicine 11/30/23 Flash Martin DO [address] [place] [address] PCP - [facility] 12/23/24 documented as of this encounter
--- OUTSIDE RECORDS SUMMARY | 2025-08-22 13:25 | XMS_ITS | Encounter Summary ---
Author Organization [facility] Address [address] [place] [address] Care Team Providers Care Chinese Herbalist Name Role Phone Flash Martin DO Primary Care Provider +- [phone] Flash Martin DO Primary Care Provider + [phone] Flash Martni DO Unavailable [phone] PetFlash galvan DO Unavailable [phone] Encounter Details Date Type Department Care Team (Late st Contact Info) Description 09/08/2023 Abstract [facility] [address] [place] [address] Justine Giraldo DO [address] [place] [place] [address] Social History Tobacco Use Types Packs/Day Years Used Date Smoking Tobacco: Never Smokeless Tobacco: Never Alcohol Use Standard Drinks/Week Comments Yes 12 (1 standard drink = 0.6 oz pure alcohol) caffeine: 1-2 cups per day coffee 4 cups daily PHQ-2 Answer Date Recorded Patient Health Questionnaire-2 Score 0 09/02/2023 Sex and Gender Information Value Date Recorded [...] [facility] [place] [facility] [address] [place] [phone] Justine Giraldo, [address] [place] [address] documented as of this encounter Visit Diagnoses Not on filedocumented in this encounter Care Teams Chinese Herbalist Relationship Specialty Start Date End Date Flash Martin DO PCP - General Family Medicine 05/18/23 11/29/23 Flash Martin DO [address] [place] [address] PCP - General Family Medicine 11/30/23 Flash Martin DO [address] [place] [address] PCP - [facility] 12/29/24 02/22/25 Flash Martin DO [address] [place] [address] [address] - [facility] 12/23/24 documented as of this encounter
--- OUTSIDE RECORDS SUMMARY | 2025-08-22 13:25 | XMS_ITS | Encounter Summary ---
Author Organization [facility] Address [address] [place] [address] Care Team Providers Care Home And School Visitor Name Role Phone Flash Martin DO Primary Care Provider +[phone]- [phone] Flash Martin DO Unavailable [phone] Encounter Details Date Type Department Care Team (Late st Contact Info) Description 08/15/2025 Telephone [facility] [place] [facility] [address] [place] [address] Flash Martin, DO [address] [place] [address] Social History Tobacco Use Types Packs/Day Years [...] declined 07/24/2024 How often do you attend religion or sikhism serv ices? Patient declined 07/24/2024 Do you belong to any clubs o r organizations such as religion groups, unions, fraternal or athletic groups, or [...] Recorded Patient Health Questionnaire-2 Score 0 08/06/2025 [facility]at ional [facility] - Occupational Stress Questionnaire Answer Date [...] or rent on time? Patient declined 07/24/20 Number of Times Moved in the Last Year Not on fi le 07/24/2024 At any time in the past 12 m [facility], were you homeless or living in a halfway (including now)? 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 would rec referral to neurology documented in this encounter Plan of Treatment Upcoming Encounters Date Type Department Care Team (Late st Contact Info) Description 12/11/2025 3:30 PM EST Office Visit [facility] [place] [facility] [address] [place] [phone] Justine Giraldo DO [address] [place] [address] documented as of this encounter Visit Diagnoses Not on filedocumented in this encounter Care Teams Home And School Visitor Relationship Specialty Start Date End Date Flash Martin DO [address] [place] [address] PCP - General Family Medicine 11/30/23 Flash Martin DO [address] [place] [address] PCP - [facility] 12/23/24 documented as of this encounter
--- OUTSIDE RECORDS SUMMARY | 2025-08-22 13:25 | XMS_ITS | Encounter Summary ---
Author Organization [facility] Address [address] [facility] [place] [address] Care Team Providers Care Fire Marshal Name Role Phone Flash Martin DO Primary Care Provider + [phone] Flash Martin DO Primary Care Provider + [phone] Flash Martin DO Unavailable [phone] Flash Martin DO Unavailable [phone] Encounter Details Date Type Department Care Team (Late st Contact Info) Description 05/28/2023 Abstract [facility] [address] [address] [place] [address] Flash Martin, DO [address] [place] [id number] Social History Tobacco Use Types Packs/Day Years Used Date Smoking Tobacco: Never Smokeless Tobacco: Never Alcohol Use Standard Drinks/Week Comments Yes 12 (1 standard drink = 0.6 oz pu re alcohol) Sex and Gender Information Value Date Recorded Sex Assigned at Male 12/08/2023 9:56 AM EST Legal Sex Male 6:36 PM EDT Gender Identity Male 12/08/2023 9:56 AM EST Sexual Orientation Not on file documented as of this encounter Plan of Treatment Upcoming Encounters Date Type Department Care Team (Late st Contact Info) Description 12/11/2025 3:30 PM EST Office Visit [facility] [address] [place] [phone] Justine Giraldo, DO [address] [place] [address] documented as of this encounter Visit Diagnoses Not on filedocumented in this encounter Care Teams Fire Marshal Relationship Specialty Start Date End Date Flash Martin DO PCP - General Family Medicine 05/18/23 11/29/23 Flash Martin, DO [address] [place] [address] PCP - General Family [facility] 11/30/23 Flash Martin, DO [address] [place] [address] PCP - [facility] 12/29/24 02/22/25 Flash Martin DO [address] [place] [address] PCP - [facility] 12/23/24 documented as of this encounter
--- OUTSIDE RECORDS SUMMARY | 2025-08-22 13:25 | XMS_ITS | Encounter Summary ---
Author Organization [facility] Address [address] [place] [address] Care Team Providers Care Divorce Lawyer Name Role Phone Flash Martin DO Primary Care Provider [phone] Flash Martin DO Unavailable [phone] Encounter Details Date Type Department Care Team (Late st Contact Info) Description 08/21/2025 Bamboo flowsheet [facility] [place] [facility] [address] [place] [address] Justine Giraldo DO [address] [place] [address] Social History Tobacco Use Types Packs/Day Years [...] declined 07/24/2024 How often do you attend zoroastrian or restorationism serv ices? Patient declined 07/24/2024 Do you belong to any clubs o r organizations such as zoroastrian groups, unions, fraternal or athletic groups, or [...] Recorded Patient Health Questionnaire-2 Score 0 08/06/2025 [facility] Occupat ional Health - Occupational Stress [...] any time in the past 12 m [facility], were you homeless or living in a alf (including now)? Patient declined 07/24/2024 Sex and [...] [facility] [place] [facility] [address] [place] [address] Justine Giraldo DO [address] [place] [address] documented as of this encounter Visit Diagnoses Not on filedocumented in this encounter Care Teams Divorce Lawyer Relationship Specialty Start Date End Date Flash Martin DO [address] [place] [address] PCP - General Family Medicine 11/30/23 Flash Martin DO [address] [place] [address] PCP - [facility] 12/23/24 documented as of this encounter
--- OUTSIDE RECORDS SUMMARY | 2025-08-22 13:25 | XMS_ITS | Encounter Summary ---
Author Organization [facility] Address [address] [facility] [place] [address] Care Team Providers Care Asphalt Blender Name Role Phone Flash Martin DO Primary Care Provider + [phone] Flash Martin DO Primary Care Provider + [phone] Flash Martin DO Unavailable [phone] PetFlash galvan DO Unavailable [phone] Encounter Details Date Type Department Care Team (Late st Contact Info) Description 05/31/2023 Orders Only [facility] [address] [place] [address] Provider, MD Maximo [address] [place], [place] [id number] Social History Tobacco Use Types Packs/Day Years [...] Office Visit [facility] [address] [place] [address] Justine Giraldo DO [address] [place] [address] documented as of this encounter Procedures Procedure Name Priority Date/Time Associated Diagnosis Comments POLYSOMNOGRAPHY (PSG) SLEEP STUDY Routine 03/31/2023 2:04 PM EDT documented in this encounter Results * POLYSOMNOGRAPHY (PSG) SLEEP STUDY (03/31/2023 2:04 PM EDT) Anatomical Region Laterality Modality Radiographic Mary Grace ging us Historical Provider MD ROB XR PROCEDURES Final R esult documented in this encounter Visit Diagnoses Not on filedocumented in this encounter Care Teams Asphalt Blender Relationship Specialty Start Date End Date Flash Martin DO PCP - General Family Medicine 05/18/23 11/29/23 Flash Martin, [address] [place] [address] PCP - General Family Medicine 11/30/23 Flash Martin, DO [address] [place] [address] PCP - [facility] 12/29/24 02/22/25 Flash Martin DO [address] [place] [address] PCP - [facility] 12/23/24 documented as of this encounter
--- OUTSIDE RECORDS SUMMARY | 2025-08-22 13:25 | XMS_ITS | Encounter Summary ---
Author Organization [facility] Address [address] [place] [address] Care Team Providers Care Machine Bunch Maker Name Role Phone Flash Martin DO Primary Care Provider [phone] Flash Martin DO Unavailable [phone] Encounter Details Date Type Department Care Team (Late st Contact Info) Description 06/26/2025 Abstract [facility] [address] [place] [address] Flash Martin, DO [address] [place] [address] Social History Tobacco Use Types Packs/Day Years [...] declined 07/24/2024 How often do you attend tenriism or christian serv ices? Patient declined 07/24/2024 Do you belong to any clubs o r organizations such as tenriism groups, unions, fraternal or athletic groups, or [...] Recorded Patient Health Questionnaire-2 Score 1 01/11/2025 [facility] of Occupat ional [facility] - Occupational Stress Questionnaire Answer Date [...] any time in the past 12 m [facility], were you homeless or living in [...] Office Visit [facility] [address] [place] [address] Justine Giraldo DO [address] [place] [address] documented as of this encounter Visit Diagnoses Not on filedocumented in this encounter Care Teams Machine Bunch Maker Relationship Specialty Start Date End Date Flash Martin DO [address] [place] [address] PCP - General Family Medicine 11/30/23 Flash Martin DO [address] [place] [address] PCP - [facility] 12/23/24 documented as of this encounter
--- OUTSIDE RECORDS SUMMARY | 2025-08-22 13:25 | XMS_ITS | Encounter Summary ---
Author Organization [facility] Address [address] [facility] [place] [address] Care Team Providers Care Unload Associate Name Role Phone Flash Martin DO Primary Care Provider + [phone] PetFlash galvan DO Primary Care Provider + [phone] Flash Martin DO Unavailable [phone] Petcole, Flash Edouard DO Unavailable [phone] Encounter Details Date Type Department Care Team (Late st Contact Info) Description 06/15/2023 Abstract [facility] [address] [facility] [address] [place] [address] Linda Faith MA, GXMO [address] [facility] [address] [place] [address] Social History Tobacco Use Types Packs/Day Years [...] Office Visit [facility] [address] [place] [address] Justine Giraldo, DO [address] [place] [address] documented as of this encounter Visit Diagnoses Not on filedocumented in this encounter Care Teams Unload Associate Relationship Specialty Start Date End Date Flash Martin DO PCP - General Family Medicine 05/18/23 11/29/23 Flash Martin, DO [address] [place] [address] PCP - General Family Medicine 11/30/23 Flash Martin, DO [address] [place] [address] PCP - [facility] 12/29/24 02/22/25 Flash Martin, DO [address] [place] [address] PCP - [facility] 12/23/24 documented as of this encounter
--- OUTSIDE RECORDS SUMMARY | 2025-08-22 13:25 | XMS_ITS | Encounter Summary ---
Author Organization [facility] Healthcare Address [address] [place] [address] Care Team Providers Care Polymerization Supervisor Name Role Phone Flash Martin DO Primary Care Provider +- [phone] Flash Martin DO Unavailable [phone] Reason for Referral * Imaging (Routine) - Authorized Specialty Diagnoses / Procedures Referred By Contac t Referred To Contact Radiology Diagnoses Arthritis, lumbar spine Procedures MR lumbar spine wo contrast Flash Martin DO [address] [place] [address] Phone: tel: fax: [facility] [place] [facility] [address] [place] [address] Phone: tel: fax: Referral ID Status Reason Start Date Expiration Date V isits Requested Visits Authorized [id number] Authorized 08/07/2025 02/03/2026 1 1 Reason for Visit * Reason Onset Date Comments Results 08/07/2025 Encounter Details Date Type Department Care Team (Late st Contact Info) Description 08/07/2025 [facility] [address] [place] [address] Flash Martin DO [address] [place] [address] XR lumbar spine complete 4+ views, XR hips bilateral 3 or 4 views Social History Tobacco Use Types Packs/Day Years [...] declined 07/24/2024 How often do you attend presybeterian or jehovah's witness serv ices? Patient declined 07/24/2024 Do you belong to any clubs o r organizations such as presybeterian groups, unions, fraternal or athletic groups, or [...] Recorded Patient Health Questionnaire-2 Score 0 08/06/2025 [facility] of Occupat ional Health - Occupational [...] any time in the past 12 m [facility], were you homeless or living in a residential (including now)? Patient declined 07/24/2024 Sex and Gender Information Value Date Recorded Sex Assigned at Male 12/08/2023 9:56 AM EST Legal Sex Male 6:36 PM EDT Gender Identity Male 12/08/2023 9:56 AM EST Sexual Orientation Not on file documented as of this encounter Miscellaneous Notes * Telephone Encounter - Luciana Eugene MA - 08/08/2025 8:32 AM EDT Left detailed message advising of below. * Telephone Encounter - Flash Martin DO - 08/07/2025 9:49 PM EDT For hospital bed would need to go through occupational therapy/pt for evaluation. When mri if scheduled will send in medication. * Telephone Encounter - Flash Martin DO - 08/07/2025 9:49 PM EDT ----- Message from Amna Garces LPN sent at 08/07/2025 3:11 PM EDT ----- ----- Message ----- From: Flash Martin DO Sent: 08/07/2025 2:41 PM EDT To: Amna Garces LPN Moderatea arthritis of both hips ----- Message ----- From: Interface, Incoming Img Psone Background Sent: 08/07/2025 2:31 PM EDT To: Flash Martin DO * Telephone Encounter - Amna Garces LPN - 08/07/2025 3:03 PM EDT P/C to pt- spoke with informing her of results. Also reviewed results from back. Pts voiced understanding. Questioning if [facility] MRI machine was open. Informed pts that I don't believe it was. requesting that MRI order be sent to [facility] (noted in order). -Pts also states pt has not been able to sleep in his bed, has been sleeping in recliner. Pts questioning script for hospital bed. - also requesting medication for claustrophobia with MRI machine. Was prescribed something in the past from Dr. Gibbs. * Telephone Encounter - Amna Garces LPN - 08/07/2025 2:58 PM EDT ----- Message from Dr. Flash Martin sent at 08/07/2025 2:41 PM EDT ----- Moderatea arthritis of both hips ----- Message ----- From: Interface, Incoming Img Psone Background Sent: 08/07/2025 2:31 PM EDT To: Flash Martin DO * Telephone Encounter - Amna Garces LPN - 08/07/2025 2:10 PM EDT LM with pt informing him of results and recommendation. Instructed pt to contact our office in a week if he does not receive a call. -MRI ordered * Telephone Encounter - Amna Garces LPN - 08/07/2025 2:09 PM EDT ----- Message from Dr. Flash Martin sent at 08/07/2025 2:06 PM EDT ----- Postsurgical changes of lumbar spine. Multi level degenerative discs with arthritis. Will be obtaining mri as discussed ----- Message ----- From: Interface, Incoming [place] Psoолег Background Sent: 08/07/2025 1:49 PM EDT To: Flash Martin DO documented in this encounter Plan of Treatment Upcoming Encounters Date Type Department Care Team (Late st Contact Info) Description 12/11/2025 3:30 PM EST Office Visit [facility] [place] [facility] [address] [place] [address] Justine Giraldo DO [address] [place] [address] Scheduled Orders Name Type Priority Associated Diagnoses Orde r Schedule MR lumbar spine wo contrast Imaging Routine Arthritis, lumbar spine Expected: 08/07/2025, Expires: 08/07/2026 documented as of this encounter Visit Diagnoses Diagnosis Arthritis, lumbar spine documented in this encounter Care Teams Polymerization Supervisor Relationship Specialty Start Date End Date Flash Martin DO [address] [place] [address] PCP - General Family Medicine 11/30/23 Flash Martin DO [address] [place] [address] PCP - [facility] 12/23/24 documented as of this encounter
--- OUTSIDE RECORDS SUMMARY | 2025-08-22 13:25 | XMS_ITS | Encounter Summary ---
Author Organization [facility] Address [address] [place] [address] Care Team Providers Care Auto Service Instructor Name Role Phone Flash Martin DO Primary Care Provider [phone] Flash Martin DO Unavailable [phone] Encounter Details Date Type Department Care Team (Late st Contact Info) Description 08/20/2025 Telephone [facility] [place] [facility] [address] [place] [id number] Flash Martin, DO [address] [place] [address] Social History Tobacco Use Types Packs/Day Years [...] declined 07/24/2024 How often do you attend roman catholic or anabaptist serv ices? Patient declined 07/24/2024 Do you belong to any clubs o r organizations such as roman catholic groups, unions, fraternal or athletic groups, or [...] Recorded Patient Health Questionnaire-2 Score 0 08/06/2025 [facility] - Occupational Stress Questionnaire Answer Date Recorded [...] time in the past 12 m [facility], were you homeless or living in a senior living (including now)? Patient declined 07/24/2024 Sex and Gender Information Value Date Recorded Sex Assigned at Male 12/08/2023 9:56 AM EST Legal Sex Male 6:36 PM EDT Gender Identity Male 12/08/2023 9:56 AM EST Sexual Orientation Not on file documented as of this encounter Miscellaneous Notes * Telephone Encounter - Amna Garces LPN - 08/22/2025 12:00 PM EDT P/C to pts informing her that RX was sent. Informed pts that she will need to drive pt toand from MRI appt. Pts voiced understanding. * Addendum Note - Flash Martin DO - 08/22/2025 11:57 AM EDTAddended by: FLASH MARTIN on: 08/22/2025 11:57 AM Modules accepted: Orders * Telephone Encounter - Flash Martin DO - 08/22/2025 11:56 AM EDT Sent in xanax * Telephone Encounter - Maryse Villalobos - 08/22/2025 10:41 AM EDT Pt's called stating that she called [facility] regarding this and she says they haven't received any medication for the patient. She says that his appointment for the MRI is scheduled at 1:30pm. Please advise. * Telephone Encounter - Chelo Nunez - 08/20/2025 11:26 AM EDT Pt's called asking for a prescription on his anxiety medication because he has an MRI on Wednesday this week at 11:00 am, sent to [facility] in [place]. documented in this encounter Plan of Treatment Upcoming Encounters Date Type Department Care Team (Late st Contact Info) Description 12/11/2025 3:30 PM EST Office Visit [facility] [place] [facility] [address] [place] [address] Justine Giraldo DO [address] [place] [address] documented as of this encounter Visit Diagnoses Diagnosis Claustrophobia- Primary Other isolated or specific phobias documented in this encounter Care Teams Auto Service Instructor Relationship Specialty Start Date End Date Flash Martin DO [address] [place] [address] PCP - General Family Medicine 11/30/23 Flash Martin DO [address] [place] [address] PCP - [facility] 12/23/24 documented as of this encounter
--- OUTSIDE RECORDS SUMMARY | 2025-08-22 13:25 | XMS_ITS | Encounter Summary ---
Author Organization [facility] Address [address] [place] [address] Care Team Providers Care Fisher Troll Line Name Role Phone Flash Martin DO Primary Care Provider [phone] Flash Martin DO Primary Care Provider + [phone] Flash Martin DO Unavailable [phone] PetFlash galvan DO Unavailable [phone] Encounter Details Date Type Department Care Team (Late st Contact Info) Description 09/09/2023 Abstract [facility] [address] [place] [phone] Justine Giraldo DO [address] [place] [address] Social History Tobacco Use Types Packs/Day Years [...] [place] [facility] [address] [place] [phone] Justine Giraldo, [address] [place] [address] documented as of this encounter Visit Diagnoses Not on filedocumented in this encounter Care Teams Fisher Troll Line Relationship Specialty Start Date End Date Flash Martin DO PCP - General Family Medicine 05/18/23 11/29/23 Flash Martin DO [address] [place] [address] PCP - General Family Medicine 11/30/23 Flash Martin DO [address] [place] [address] PCP - [facility] 12/29/24 02/22/25 Flash Martin DO [address] [place] [address] PCP - [facility] 12/23/24 documented as of this encounter
--- OUTSIDE RECORDS SUMMARY | 2025-08-22 13:25 | XMS_ITS | Encounter Summary ---
Author Organization [facility] Address [address] [facility] [place] [address] Care Team Providers Care Electronic Test Technician Name Role Phone Flash Martin DO Primary Care Provider + [phone] Flash Martin DO Primary Care Provider + [phone] Flash Martin DO Unavailable [phone] PetFlash galvan DO Unavailable [phone] Encounter Details Date Type Department Care Team (Late st Contact Info) Description 05/20/2023 Orders Only [facility] [place] [facility] [address] [place] [address] Provider, MD Maximo [address] [place], [place] [id number] Social History Tobacco Use Types Packs/Day Years [...] Visit [facility] [address] [place] [phone] Justine Giraldo DO [address] [place] [address] documented as of this encounter Procedures Procedure Name Priority Date/Time Associated Diagnosis Comments SCANNED LABS Routine 12/30/1980 8:42 AM EST documented in this encounter Results * SCANNED LABS (12/30/1980 8:42 AM EST) us Historical Provider LAB CHG PERFORMABLES Nereida l Result documented in this encounter Visit Diagnoses Not on filedocumented in this encounter Care Teams Electronic Test Technician Relationship Specialty Start Date End Date Flash Martin, DO PCP - General Family Medicine 05/18/23 11/29/23 Flash Martin, DO [address] [place] [address] PCP - General Family Medicine 11/30/23 Flash Martin, DO [address] [place] [address] PCP - [facility] 12/29/24 02/22/25 Flash Martin DO [address] [place] [address] PCP - [facility] 12/23/24 documented as of this encounter
--- OUTSIDE RECORDS SUMMARY | 2025-08-22 13:25 | XMS_ITS | Encounter Summary ---
Author Organization [facility] Address [address] [place] [address] Care Team Providers Care Replenishment Merchandising Associate Name Role Phone Flash Martin DO Primary Care Provider [phone] Flash Martin DO Unavailable [phone] Encounter Details Date Type Department Care Team (Late st Contact Info) Description 08/08/2025 Telephone [facility] [address] [place] [phone] Venita Dawn Social History Tobacco Use Types Packs/Day Years [...] declined 07/24/2024 How often do you attend orthodox or methodist serv ices? Patient declined 07/24/2024 Do you belong to any clubs o r organizations such as orthodox groups, unions, fraternal or athletic groups, or [...] Recorded Patient Health Questionnaire-2 Score 0 08/06/2025 [facility] of Occupat ional [facility] - Occupational Stress Questionnaire Answer [...] mortgage or rent on time? Patient declined 09/02/20 24 Number of Times Moved in the Last Year Not on fi le 07/24/2024 At any time in the past 12 m [facility], were you homeless or living in a care home (including now)? Patient declined 07/24/2024 Sex and Gender Information Value Date Recorded Sex Assigned at Male 12/08/2023 9:56 AM EST Legal Sex Male 6:36 PM EDT Gender Identity Male 12/08/2023 9:56 AM EST Sexual Orientation Not on file documented as of this encounter Miscellaneous Notes * Telephone Encounter - Venita Dawn - 08/08/2025 7:19 PM EDT EMG referral from Dr. Milla Martin. LMOM for patient to to schedule appointment. documented in this encounter Plan of Treatment Upcoming Encounters Date Type Department Care Team (Late st Contact Info) Description 12/11/2025 3:30 PM EST Office Visit [facility] [place] [facility] [address] [place] [address] Justine Giraldo, DO [address] [place] [address] documented as of this encounter Visit Diagnoses Not on filedocumented in this encounter Care Teams Replenishment Merchandising Associate Relationship Specialty Start Date End Date Flash Martin DO [address] [place] [address] PCP - General Family Medicine 11/30/23 Flash Martin DO [address] [place] [address] PCP - [facility] 12/23/24 documented as of this encounter
--- OUTSIDE RECORDS SUMMARY | 2025-08-22 13:25 | XMS_ITS | Encounter Summary ---
Author Organization [facility] Address [address] [place] [address] Care Team Providers Care Plant Technician Name Role Phone Flash Martin DO Primary Care Provider [phone] Flash Martin DO Unavailable [phone] Encounter Details Date Type Department Care Team (Latest Contact Info) Description 08/21/2025 Travel Social History Tobacco Use Types Packs/Day [...] declined 07/24/2024 How often do you attend mandaeism or worship serv ices? Patient declined 07/24/2024 Do you belong to any clubs o r organizations such as mandaeism groups, unions, fraternal or athletic groups, or [...] Recorded Patient Health Questionnaire-2 Score 0 08/06/2025 [facility] Occupat ional [facility] - Occupational Stress Questionnaire Answer Date [...] any time in the past 12 m [facility], were you homeless or living in a long-term (including now)? Patient declined 07/24/2024 Sex and [...] [facility] [address] [place] [address] Justine Giraldo DO [address] [place] [address] documented as of this encounter Visit Diagnoses Not on filedocumented in this encounter Care Teams Plant Technician Relationship Specialty Start Date End Date Flash Martin DO [address] [place] [address] PCP - General Family Medicine 11/30/23 Flash Martin DO [address] [place] [address] PCP - [facility] 12/23/24 documented as of this encounter
--- NOTE | 2025-08-22 13:31 | MR_ITS ---
The [address] [address] Patient Name: RAMIRO MEDINA MRN: [id number] date: 1965 Sex: M Assigned Patient Location: MRI Current Patient Location: MRI Accession/Order Number: [id number] Exam Date: 08/22/2025 14:00 Report Date: 08/22/2025 16:36 At the request of: RON BEAULIEU Procedure: MR lumbar spine wo con MR lumbar spine wo con 08/22/2025 2:42 PM SIGNS AND SYMPTOMS: Chronic low back pain radiating into right leg PROTOCOL: Multiplanar multisequence MR images of the lumbar spine without IV contrast COMPARISON: 12/11/2020 FINDINGS: The bones of the lumbar spine are in anatomic alignment. There is preservation of vertebral body heights. There is posterior and intervertebral fusion from L3 through L5. There is a benign-appearing hemangioma at T12, L1, and L2. There is posterior impression. There is evidence of previous intervertebral fusion at L5-S1. There is disc desiccation and mild disc height loss at L2-L3. The conus terminates at the superior endplate of the L2 vertebral body level. No epidural or paraspinous fluid collection is appreciated. At T12-L1: There is a normal disc, central canal, and neural foramen. At L1-L2: There is a normal disc, central canal, and neural foramen. At L2-L3: There is a circumferential disc bulge with facet hypertrophy. There is mild to moderate bilateral neural foraminal narrowing with moderate spinal canal narrowing. This is worse when compared to the prior exam. At L3-L4: There is posterior and intervertebral fusion. There is facet hypertrophy contributing to mild right neural foraminal narrowing. No spinal canal narrowing. This is unchanged. At L4-L5: There is posterior and intervertebral fusion with significant facet hypertrophy. Facet effusions are present bilaterally. There is posterior decompression with mild spinal canal narrowing. There is moderate bilateral neural foraminal narrowing. This is unchanged. At L5-S1: There is intervertebral fusion with facet hypertrophy. There is moderate left and mild right neural foraminal stenosis. This is unchanged. MR/MR lumbar spine wo con IMPRESSION: At L2-L3: There is a circumferential disc bulge with facet hypertrophy. There is mild to moderate bilateral neural foraminal narrowing with moderate spinal canal narrowing. This is worse when compared to the prior exam. There is posterior and intervertebral fusion from L3 through L5 with evidence of previous intervertebral fusion at L5-S1. No significant interval change in these locations. Impression dictated by: Vince Brown M.D. 08/22/2025 4:36 PM Dictation Location: [place] [address] Electronically authenticated by: [id number] Y Date: 08/22/2025 16:36
== END 2025-08-22 13:19 | disposition home or self-care (01) ==
LOC: MRI 13:23
PROVIDERS: PCP Family Medicine; Visit Provider Family Medicine
DX: M47.816 Spondylosis without myelopathy or radiculopathy, lumbar region (principal); M51.369 Other intervertebral disc degeneration, lumbar region without mention of lumbar back pain or lower extremity pain; M43.20 Fusion of spine, site unspecified
CPT/HCPCS: 72148